=== PATIENT | female | born 1990 | race Caucasian/White ===

== ENCOUNTER 2017-01-14 15:59 | Inpatient (IN) | payer OTHER ==
[~2017-01-14] VITALS: Ht 152.4 cm; Wt 82.6 kg
[~2017-01-14 15:59] MED LIST: Morphine PF 1 mg/mL 10 mL Inj ONE; Ondansetron 2 mg/mL 2 mL Inj ONE; Oxytocin 10 Unit/mL Inj ONE; Phenylephrine/NS 100 mCg/mL 10 mL Syringe IVPUSH ONE; fentaNYL-PF 50 mCg/mL 2 mL Inj ONE
[2017-01-14] MEDS ORDERED: Oxytocin 30 Units/500 mL LR 30 UNITS in IV Premix 1 EACH IV PRN (18:15)
[2017-01-14] MEDS ORDERED: Carboprost 250 mCg/mL Inj IM PRN (18:15)
[2017-01-14] MEDS ORDERED: fentaNYL-PF 50 mCg/mL 2 mL Inj IVPUSH PRN ×2 (18:15→23:05)
[2017-01-14] MEDS ORDERED: Sodium Chloride LOK Flush 10 mL Syringe IVFLUSH PRN (18:15)
[2017-01-14] MEDS ORDERED: Hemorrhage Kit, Post Partum XX ONE (18:15)
[2017-01-14] MEDS ORDERED: Ondansetron 2 mg/mL 2 mL Inj IVPUSH PRN (18:15)
[2017-01-14] MEDS ORDERED: Oxytocin 10 Unit/mL Inj IM PRN (18:15)
[2017-01-14] MEDS ORDERED: Methylergonovine 0.2 mg/mL Inj IM PRN (18:15)
[2017-01-14] MEDS: Lactated Ringer's 1,000 ML IV PRN ×3 (18:47→23:01)
[2017-01-14 19:01] LABS: Mean Corpuscular Hemoglobin 27.7 pg (27.0-35.0); Mean Corpuscular Volume 80.1 fL (81-100)
--- NOTE | 2017-01-14 19:56 | PCM.HPOB ---
Subjective Date of Service: Jan 14, 2017 Referring Provider: Admitting Physician: Mohit Marshall MD Primary Care Physician: Nopcp Attending Physician: Mohit Marshall MD Chief Complaint , uterine, not delivered, term. Intermittent contractions Decreased movement History of Present History of Present Illness 26 YO W presenting for evaluation at 36+5/7 weeks EGA with complaint of irregular contractions, occasional headache, somewhat decreased FM. Upon evaluation, few contractions were present but NST was non-reactive. Biophysical profile performed with 05/25 (fluid) result. EFW reportedly consistent w/ AGA 32 week gestation but UA doppler studies normal. Patient admitted for continued observation and evaluation due to concerns over wellbeing. OB History: (2), Para (1), Term (1), Pre-term (0), ( 0), Living Obstetrical Complications: None, Growth Restriction (Not confirmed but U/ S on admission suggestive) Past Medical History Obstetrical History: Term 7#1oz. 06/2015 Gynecologic History: Normal menarche and menstrual history. No Hx of STD. Medical History: Denies HTN, DM, or other significant medical conditions. Surgical History: only. No surgeries reported. Social History: Denies smoking, ETOH or drugs. . Hx Tobacco Use: No Hx Alcohol Use: No Hx Substance Use: No Past Family History Living Arrangement: with Family Genetic Screening/Counseling Genetic Screening/Counseling: Unknown (Patient declined quad screen. Level II U/S at 22 weeks is normal.) Review of Systems Constitutional: Y: Change of appitite Eyes: Resports: Vision Changes (Sees spoots occasionally) Musculoskeletal: Reports: Back Pain (Started a few weeks ago when she made a twisting movement and started having pain. Currently taking a muscle relaxant for PRN use.) Neurological: Reports: Other (Occasional bi-frontal headaches) Medications Home medications Famotidine 10 mg PO BID PRN Omeprazole 40 mg cap PO q d Vitamins Allergy Coded Allergies: No Known Allergies (Unverified , 01/14/17) Exam Vital Signs 135/92, P=82, R=16 Exam Non-reactive NST, BPP 2/8, UA doppler studies nl, SGA by U/S this evening Constitutional: Well-developed, Well-nourished HEENT: PERRLA Lungs: Clear to Auscultation Heart: Exam Unremarkable Fundus 33-34 cm Abdomen: Gravid, Normal bowel sounds, No tenderness Lymphatic: Normal: Neck Palpation of Nodes Extremities: Pulses Palpable x4, Warm, No Edema Neurological/Psychiatric: Alert, Oriented X3, Cooperative, Mild Distress ( Concerned about the ) Neuro: Grossly Neurologically Intact, Normal DTRs Additional Information Sterile vaginal exam not performed since she's not having contractions. Labs/Diagnostics Labs WBC=11.7, H/H=14.9/43.1, KIT=009T Ultra [employer] PROCEDURE: US OB FOLLOW UP GROWTH AND BIOPHYSICAL PROFILE AND UMBILICAL DOPPPLER INDICATIONS: DECREASED MOVEMENT OUTSIDE/PRIOR DATING DATA: Last menstrual period (LMP): 04/12/16 LMP-based estimated date of delivery (ZAY): 01/16/17. First dating scan (date and location): 06/23/16. Estimated date of delivery (ZAY) from first dating scan: 02/06/17, plus or -5 days based on the first OB ultrasound yielding a gestational age of 7 weeks 3 days plus or -5 days at that time. TECHNIQUE: Real-time scanning was performed of the fetus, with image documentation and biometric measurements. Endovaginal scanning: Not necessary for this study. COMPARISON: [facility] Ultrasound, US, US OB>14 WKS ANATOMY COMP, 09/21/2016, 11:33. [facility] Ultrasound, US, US OB<14 WKS+OB TRANSVAG, 06/23/2016, 16:51. FINDINGS: General: A single living intrauterine gestation is present. Presentation: Vertex. Placenta: Placental position is fundal right, without previa. Amniotic fluid index: 2.0 cm; normal range is 5-24 cm. heart rate: 141 beats per minute. Maternal cervical canal: 3.1 cm long. Normal lower limit is 2.5 cm. biometrics: Biparietal diameter: 8.0 cm, 32 weeks one day Head circumference: 29.0 cm, 31 weeks 3 days Abdominal circumference: 26.3 cm, 30 weeks 3 days Femur length: 6.3 cm, 32 weeks 4 days Estimated gestational age from initial scan: 36 weeks 5 days and therefore there has been an appropriate interval growth with symmetric growth retardation given the unavailability of an early first trimester ultrasound yielding a accuracy of plus or -5 days from that study in terms of gestational age. Composite gestational age from present scan: 31 weeks 5 days Estimated weight and percentile: 1749 g, well below the lower 5th percentile for the current gestational age based on the first of OB ultrasound. Measurement variability for biometric dating: +/- 7 days from 14 weeks to 15 weeks 6 days gestation, +/- 10 days from 16 weeks to 21 weeks 6 days gestation, +/- 2 weeks from 22 weeks to 27 weeks 6 days gestation, +/- 3 weeks for 28 weeks gestation or later. weight reference: 4500 g or EFW >90/95% is considered macrosomia or large for gestational age. EFW <10% is small for gestational age. EFW 5% or less is considered intra-uterine growth restriction. Anatomic survey: Significantly limited due to advanced gestational age and low amniotic fluid volume. 4 chamber view of heart is normal as is the appearance of the chest and diaphragm, abdomen and stomach, right and left kidneys, and the left upper extremity and bilateral lower extremities. Biophysical profile: Tone: Zero points. Movement: 2 points. Respiration: Zero points. Largest pocket of fluid: Zero points. Umbilical artery Doppler: 3.2 IMPRESSION: There has been inappropriate interval delayed growth, with symmetric growth retardation, with reference to the first OB ultrasound (most accurate) obtained earlier the first trimester of this gestation. The growth currently would estimate a gestational age of 31 weeks 5 days, well below normal considering the most accurate current estimated gestational age is 36 weeks 5 days plus or -5 days. Amniotic fluid volume is prominently reduced, oligohydramnios, and also biophysical profile revealed only 2 of 8 possible points. The umbilical artery systolic/diastolic ratio, however, is within the normal range at 3.2. The current visualization of the anatomy as relatively limited by the later gestational age and the absence of significant amniotic fluid. The current findings indicate a high risk circumstance for this fetus, and the findings were discussed with the ordering healthcare provider directly at completion of image acquisition. The patient is anticipated to be admitted for continuous observation in the ordering healthcare provider is aware of these findings. Depending on the clinical status near term tertiary care referral may become necessary. Maternal Blood Type: A Hx Rho(D) Immune Globulin: No Group B Strep Results: Sent, awaiting results Previous with GBS: No Rubella: Immune OB Intrapartum Assessment/Plan Assessment , uterine, not delivered, 36+5 weeks EGA growth restriction Non-reassuring FHR PLAN: Admit for continuous monitoring and further assessment. Patient and family made aware of the findings and our concern re: wellbeing. Expedited pre-term delivery is indicated for this infant due to FGR and non- reassuring antepartum assessment. Doubtful can tolerate induction but will perform a brief ABRASIVE MIXER to fully assess potential for vaginal delivery. If as I expect the ABRASIVE MIXER is positive will recommend delivery by section isreal. Time Spent: 1 hour Attending Statement N/A Mohit Marshall MD Jan 14, 2017 7:56 pm
--- NOTE | 2017-01-14 20:10 | DRSVH ---
PROCEDURE: US OB FOLLOW UP GROWTH AND BIOPHYSICAL PROFILE AND UMBILICAL DOPPPLER INDICATIONS: DECREASED MOVEMENT OUTSIDE/PRIOR DATING DATA: Last menstrual period (LMP): 04/12/16 LMP-based estimated date of delivery (ZAY): 01/16/17. First dating scan (date and location): 06/23/16. Estimated date of delivery (ZAY) from first dating scan: 02/06/17, plus or -5 days based on the [facility] t OB ultrasound yielding a gestational age of 7 weeks 3 days plus or -5 days at that time. TECHNIQUE: Real-time scanning was performed of the fetus, with image documentation and biometric measurements. Endovaginal scanning: Not necessary for this study. COMPARISON: [facility] Ultrasound, US, US OB>14 WKS ANATOMY COMP, 09/21/2016, 11:33. [facility] Ultrasound, US, US OB<14 WKS+OB TRANSVAG, 06/23/2016, 16:51. FINDINGS: General: A single living intrauterine gestation is present. Presentation: Vertex. Placenta: Placental position is fundal right, without previa. Amniotic fluid index: 2.0 cm; normal range is 5-24 cm. heart rate: 141 beats per minute. Maternal cervical canal: 3.1 cm long. Normal lower limit is 2.5 cm. biometrics: Biparietal diameter: 8.0 cm, 32 weeks one day Head circumference: 29.0 cm, 31 weeks 3 days Abdominal circumference: 26.3 cm, 30 weeks 3 days Femur length: 6.3 cm, 32 weeks 4 days Estimated gestational age from initial scan: 36 weeks 5 days and therefore there has been an appropr iate interval growth with symmetric growth retardation given the [facility] yielding a accuracy of plus or -5 days from that study in terms of gestational age. Composite gestational age from present scan: 31 weeks 5 days Estimated weight and percentile: 1749 g, well below the lower 5th percentile for the current g estational age based on the first of OB ultrasound. Measurement variability for biometric dating: +/- 7 days from 14 weeks to 15 weeks 6 days gestation, +/- 10 days from 16 weeks to 21 weeks 6 days gestation, +/- 2 weeks from 22 weeks to 27 weeks 6 days gestation, +/- 3 weeks for 28 weeks gestation or later. weight reference: 4500 g or EFW >90/95% is considered macrosomia or large for gestational age. EFW <10% is small for gestational age. EFW 5% or less is considered intra-uterine growth restrictio n. Anatomic survey: Significantly limited due to advanced gestational age and low amniotic fluid volume. 4 chamber view of heart is normal as is the appearance of the chest and diaphragm, abdomen and stomach, right and left kidneys, and the left upper extremity and bilateral lower extremities. Biophysical profile: Tone: Zero points. Movement: 2 points. Respiration: Zero points. Largest pocket of fluid: Zero points. Umbilical artery Doppler: 3.2 IMPRESSION: There has been inappropriate interval delayed growth, with symmetric growth retardation, with reference to the first OB ultrasound (most accurate) obtained earlier the first trimester of th is gestation. The growth currently would estimate a gestational age of 31 weeks 5 days, well b elow normal considering the most accurate current estimated gestational age is 36 weeks 5 days plus o r -5 days. Amniotic fluid volume is prominently reduced, oligohydramnios, and also biophysical profile revealed only 2 of 8 possible points. The umbilical artery systolic/diastolic ratio, however, is within the n ormal range at 3.2. The current visualization of the anatomy as relatively limited by the later gestational age and the absence of significant amniotic fluid. The current findings indicate a high risk circumstance for this fetus, and the findings were discusse d with the ordering healthcare provider directly at completion of image acquisition. The patient is anticipated to be admitted for continuous observation in the ordering healthcare provider is aware of these findings. Depending on the clinical status near term tertiary care referral may become necess ni. Dictated by: Mika Ryan M.D. on 01/14/2017 at 19:54 Approved by: Mika Ryan M.D. on 01/14/2017 at 20:08
--- NOTE | 2017-01-14 21:25 | PCM.PNOBIP ---
Subjective Date of Service Jan 14, 2017 Visit History Interval antepartum progress note. Subjective As would be expected, patient is concerned about the and her baby. Maternal Date/Time of ROM: N/A Group B Strep Results: Sent, awaiting results Rubella: Immune Blood Type: A Labs Laboratory Tests 01/14/17 18:27: White Blood Count 11.7, Red Blood Count 5.38, Hemoglobin 14.9, Hematocrit 43.1, Mean Corpuscular Volume 80.1, Mean Corpuscular Hemoglobin 27.7, Mean Corpuscular Hemoglobin Concent 34.6, Red Cell Distribution Width 13.7, Platelet Count 277 Exam Vital Signs Vital Signs Contraction frequency in minutes: MVUs: Vital Signs: VS reviewed, concerns are (Sporadically elevated BP's in the range of 150's/high 90's.) Heart Tracings Heart Tones Baseline 140 bpm Heart Rate Variability: Minimal Heart Rate Accelleration: Absent Heart Rate Deceleration: Present (Rare, mild variables) Tocometry/IUPC Contraction frequency in minutes: MVUs: Sterile Vaginal Exam Not performed Exam Abdomen: Fundus firm, Abdomen soft, Abdomen non-tender Extremities: Normal pulses, No edema Lungs: Clear to Auscultation Heart: Exam Unremarkable General: Alert, Oriented X3, Cooperative, Mild Distress (Concerned about the ) OB Intrapartum Assessment/Plan Assessment As before. Extensive discussions with Pediatric Hospitalist team who express concerns for the significant potential that this could require level III NICU care following delivery here due to severe FGR, oligohydramnios, and non- reassuring antepartum testing. Options for continued care, delivery, and peripartum care reviewed with Peds Hospitalist (Dr. Hammond), and family. Option of antepartum transport to [facility] service and delivery there versus [facility] offered due to available subspecialty care and Level III NICU. Patient and family have decided on transport to [facility] for continued care, M evaluation, and probable delivery. Case reviewed via TEL[facility] with Dr. Sanders of [facility] who stated her belief transport of this with a BPP of 2/10 is too risky and instead recommeded immediate delivery by section. Case reviewed again with Dr. Hammond and the patient who accept Dr. Sanders's recommendation and we will be proceeding to primary section as soon as possible this evening. Patient and family counselled re: indications, alternatives, risks and complication associated with primary section. They agree to proceed and consent signed in the presence of a witness. Mohit Marshall MD Jan 14, 2017 9:25 pm
[2017-01-14] MEDS ORDERED: CeFAZolin Inj 2 GM in IV Premix 1 EACH IV ONE (22:35)
[2017-01-14] MEDS ORDERED: Sodium Citrate-Citric Acid 15 mL Solution PO SCH (22:35)
[2017-01-14] MEDS ORDERED: CeFAZolin 2 Gm/50 mL D5W Duplex Bag IV ONE (22:58)
--- NOTE | 2017-01-14 23:01 | PCM.HPANE ---
Patient Data Surgeon Admitting Provider:Mohit Marshall MD Attending Provider:Mohit Marshall MD Primary Care Physician:Michael Other Provider:João Remy Anesthesia Reason for Visit Pre-Term Labor Check PRE-TERM LABOR CHECK Ht/WT & BMI Body Mass Index Allergies Coded Allergies: No Known Allergies (Unverified , 01/14/17) Past Anesthesia History Anesthesia History: Denies:: Abnormal Airway Diabetes History Hx Diabetes?: No MRSA MRSA: No Medications Hypertension Medication: No Home Meds Incl Beta Mile: No History History of ENT Problems?: No HEENT History: Denies:: Abnormal Airway Denture Type: None Teeth Condition: Within Normal Limits Hx of Heart Problems?: No Cardiovascular History: Denies:: Chest Pain Hx of Respiratory Problem?: No Respiratory History: Denies:: Asthma Hx Neurologic Problems?: No Other Neurological Pertinent: Back pain at times Hx of GI Problems?: No Hx of Problems?: No Hx Musculoskeletal Problems?: No Hx Surgeries?: Yes Other History/Comment Prior with epidural Hx Alcohol Use: NoHx Substance Use: No Stop/Bang Risk Assessment Category Category 1A: Patient has history of documented sleep apnea, and HAS NOT received any narcotic, sedative or anesthesia administration during this stay. Category 1B: Patient has history of documented sleep apnea, and HAS received any narcotic , sedative or anesthesia administration during this stay Category 2: Patient has SUSPECTED Obstructive Sleep Apnea, and HAS received any narcotic , sedative or anesthesia administration during this stay. Category 3: Patient has SUSPECTED Obstructive Sleep Apnea and HAS NOT received narcotic, sedative or anesthesia administration during this stay. Category 4: Outpatient in Procedural Areas with known sleep apnea or who screen positive for High Risk via the STOP/BANG questionnaire. Exam Exam General Appearance: Alert, Oriented X3, Cooperative, Mild Distress (Concerned about the ) HEENT/AIRWAY: MP 1 Lungs: Clear to Auscultation Heart: Exam Unremarkable Meds/Labs/Diagnostics Labs Test 01/14/17 18:27 White Blood Count 11.7th/mm3 (3.8-10.1) Red Blood Count 5.38mil/mm3 (3.90-5.20) Hemoglobin 14.9g/dL (12.0-15.6) Hematocrit 43.1% (35.0-46.0) Mean Corpuscular Volume 80.1fL (81-100) Mean Corpuscular Hemoglobin 27.7pg (27.0-35.0) Mean Corpuscular Hemoglobin Concent 34.6% (32.0-37.0) Red Cell Distribution Width 13.7% (12.3-15.4) Platelet Count 277bil/L (150-400) Plan Impression Patient chart reviewed, patient interviewed and anesthestic plan with risks, benefits, and alternatives discussed, and informed consent obtained. NPO per Anesth. Guidelines: No ASA Physical Status: ASA2 Mod Systemic Disease Anesthetic Plan: SAB Bene/Risks/Altern/Consents: Yes HP Complete Prior to Induction: Yes Mo Whitten MD Jan 14, 2017 23:01
[2017-01-14] MEDS ORDERED: Atropine 0.4 mg/mL Inj IV PRN (23:05)
[2017-01-14] MEDS ORDERED: EPHEDrine Sulfate 50 mg/mL Inj IVPUSH PRN (23:05)
== END 2017-01-15 01:23 | disposition admitted as inpatient to this hospital (09) | DRG 951 ==
LOC: FBCO 15:59 → FBC 17:44
PROVIDERS: ADMIT Obstetrics & Gynecology; ATTEND Obstetrics & Gynecology
DX: R69 Illness, unspecified (principal)